=== PATIENT | male | born 1975 | race Caucasian/White ===

== ENCOUNTER 2025-05-10 18:16 | Emergency (ER) | payer OTHER ==
[~2025-05-10] VITALS: Ht 190.5 cm; Wt 104.3 kg
[2025-05-10 19:15] LABS: CALCIUM, SERUM 9.5 mg/dL (8.5-10.1); CREATININE 1.2 mg/dL (0.6-1.3); POTASSIUM 4.6 mmol/L (3.5-5.1)
[2025-05-10] MEDS: EMTRICITABINE/TENOFOVIR 1 TAB PO ONE (19:19)
[2025-05-10] MEDS: RALTEGRAVIR POTASSIUM 400 MG TABLET PO ONE (19:19)
[2025-05-10 19:21] LABS: ALBUMIN 3.9 g/dL (3.4-5.0); BILIRUBIN,TOTAL 0.6 mg/dL (0.2-1.0)
[2025-05-10] MEDS ORDERED: AMOX/CLAVULANATE 875 MG TABLET ONE (20:31)
[2025-05-10] MEDS: AMOX/CLAVULANATE 875 MG TABLET PO ONE (20:35)
[2025-05-10] MEDS ORDERED: EMTR1TAB12 PO (20:48)
[2025-05-10] MEDS ORDERED: RALT400T PO (20:48)
[2025-05-10] MEDS ORDERED: AMOX-430 PO (20:48)
[2025-05-10] MEDS ORDERED: TDAP [DIPH/PERTUSSIS/TET] 0.5 ML VIAL IM ONE (20:56)
[2025-05-10 21:00] VITALS: BP 138/90; TEMP 98.4; O2SAT 99
[2025-05-10] MEDS: TDAP [DIPH/PERTUSSIS/TET] 0.5 ML VIAL IM ONE (21:00)
== END 2025-05-10 21:01 | disposition home or self-care (01) ==
LOC: ER 18:33
DX: S41.131A Puncture wound without foreign body of right upper arm, initial encounter (principal); Y04.1XXA Assault by human bite, initial encounter; Y93.89 Activity, other specified; Y92.89 Other specified places as the place of occurrence of the external cause; Y99.8 Other external cause status
CPT/HCPCS: 36415; 80053-TC; 90715